=== PATIENT | male | born 1990 | race Caucasian/White ===

== ENCOUNTER 2020-02-18 15:00 | Emergency (ER) | payer MEDICAID ==
[~2020-02-18] VITALS: Ht 175.3 cm; Wt 78.1 kg
[~2020-02-18 15:00] MED LIST: LIDOcaine 1% W/epiNEPHrine 1:200,000 10ml vial ONE
[2020-02-18 15:02] VITALS: BP 111/77
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
[2020-02-18] MEDS ORDERED: BACDS PO (15:45)
[2020-02-18] MEDS ORDERED: CEPH250T PO (15:45)
--- NOTE | 2020-02-18 16:02 | NUR ---
dressed wound to rt forearm with guaze and coban, pt katie well, also cleaned and redressed abrasion to left ankle, gave pt large bandaids
== END 2020-02-18 16:11 | disposition home or self-care (01) ==
LOC: ER 15:00
DX: L02.511 Cutaneous abscess of right hand (principal); M25.421 Effusion, right elbow; Z79.2 Long term (current) use of antibiotics
CPT/HCPCS: 10060; 99284

== ENCOUNTER 2020-03-17 10:42 | Emergency (ER) | payer MEDICAID ==
[~2020-03-17] VITALS: Ht 175.3 cm; Wt 77.0 kg
[2020-03-17] MEDS ORDERED: normal saline 1000ML IV soln IVB ONE (10:55)
[2020-03-17] MEDS ORDERED: ondansetron/PF 4mg/2ml inj IV ONE (10:55)
[2020-03-17] MEDS ORDERED: iohexol 300mg/ml 100ml inj. ONE (11:01)
[2020-03-17] MEDS: morphine 4 MG/ML inj SYRINge IV PRN ×2 (11:37→13:51)
--- NOTE | 2020-03-17 11:42 | NUR ---
PT TO MRI
[2020-03-17] MEDS ORDERED: morphine 4 MG/ML inj SYRINge IV ONE ×2 (11:50→13:55)
[2020-03-17] MEDS ORDERED: ketorolac trometh. 30mg/ml inj. IV ONE (11:50)
[2020-03-17] MEDS ORDERED: LORazepam 2 mg/ml vial IV ONE (11:50)
[2020-03-17 11:51] LABS: BASOPHILS % (AUTO) 0.3 % (0-1); EOSINOPHILS # (AUTO) 0.1 X10'3 (0-0.9); HEMATOCRIT 40.7 % (42.0-52.0); HEMOGLOBIN 13.5 g/dl (14.0-17.9); LYMPHOCYTES # (AUTO) 1.2 X10'3 (1.1-4.8); LYMPHOCYTES % (AUTO) 14.3 % (21-51); MEAN CORPUSCULAR HEMOGLOBIN 28.9 PG (27.0-31.0); MEAN CORPUSCULAR HGB CONC 33.1 g/dL (33.0-36.5); MEAN CORPUSCULAR VOLUME 87.2 FL (78-98); MEAN PLATELET VOLUME 9.1 FL (7.4-10.4); MONOCYTES # (AUTO) 0.6 X10'3 (0-0.9); MONOCYTES % (AUTO) 6.9 % (2-12); NEUTROPHILS # (AUTO) 6.6 X10'3 (1.8-7.7); NEUTROPHILS % (AUTO) 77.5 % (42-75); PLATELET COUNT 198 X10'3 (140-440); RED BLOOD COUNT 4.66 X10'6 (4.70-6.10); RED CELL DISTRIBUTION WIDTH 15.6 % (11.5-14.5); WHITE BLOOD COUNT 8.5 X10'3 (4.5-11.0)
[2020-03-17 12:07] LABS: ALANINE AMINOTRANSFERASE 31 U/L (12-78); ALBUMIN 4.1 G/DL (3.4-5.0); ALBUMIN/GLOBULIN RATIO 1.4 (1.1-1.5); ALKALINE PHOSPHATASE 67 IU/L (46-116); ANION GAP 3 (8-16); ASPARTATE AMINO TRANSFERASE 44 U/L (10-37); BILIRUBIN,TOTAL 0.5 MG/DL (0.1-1.0); BLOOD UREA NITROGEN 15 MG/DL (7-18); BUN/CREATININE RATIO 17.4 (5.4-32.0); CALCIUM 8.2 MG/DL (8.5-10.1); CHLORIDE 102 MMOL/L (99-107); CREATININE 0.86 MG/DL (0.60-1.10); GLUCOSE 94 MG/DL (70-104); POTASSIUM 3.7 MMOL/L (3.5-5.1); SODIUM 138 MMOL/L (135-145); TOTAL CARBON DIOXIDE 32.8 MMOL/L (24-32); eGFR > 90 ML/MIN
[2020-03-17 12:09] LABS: ETHANOL < 0.010 GM/DL (0.0-0.010); TROPONIN I < 0.04 NG/ML (0.0-0.05)
--- NOTE | 2020-03-17 12:22 | NUR ---
PT BACK FROM MRI, PT PLACED ON ER MONITORS.
[2020-03-17 12:49] LABS: CLARITY,URINE CLEAR (Clear); COLOR,URINE YELLOW (Yellow); GLUCOSE, URINE NEGATIVE (Neg); KETONES,URINE TRACE mg/dl (Neg); LEUKOCYTE ESTERASE ,URINE NEGATIVE (Neg); NITRITES, URINE NEGATIVE (Neg); OCCULT BLOOD,URINE NEGATIVE (Neg); PH,URINE 6.5 (4.8-8.0); PROTEIN,URINE NEGATIVE (Neg); UROBILINOGEN,URINE 0.2 E.U/dL (0.2-1.0)
[2020-03-17 12:58] LABS: UA COLLECTION TYPE URINAL
[2020-03-17 13:01] LABS: URINE AMPHETAMINE SCREEN NEGATIVE (Neg); URINE BARBITUATE SCREEN NEGATIVE (Neg); URINE BENZODIAZEPINES SCREEN NEGATIVE (Neg); URINE CANNABINOID SCREEN POSITIVE (Neg); URINE COCAINE SCREEN NEGATIVE (Neg); URINE METHADONE SCREEN NEGATIVE (Neg); URINE OPIATE SCREEN POSITIVE (Neg); URINE PHENCYCLIDINE SCREEN NEGATIVE (Neg)
[2020-03-17 14:16] VITALS: BP 102/58
== END 2020-03-17 14:50 | disposition short-term general hospital (02) ==
LOC: ER 10:43
DX: S20.229A Contusion of unspecified back wall of thorax, initial encounter (principal); S40.812A Abrasion of left upper arm, initial encounter; S80.212A Abrasion, left knee, initial encounter; S80.211A Abrasion, right knee, initial encounter; S60.512A Abrasion of left hand, initial encounter; S60.511A Abrasion of right hand, initial encounter; M51.27 Other intervertebral disc displacement, lumbosacral region; R33.9 Retention of urine, unspecified; V09.9XXA Pedestrian injured in unspecified transport accident, initial encounter; Y93.51 Activity, roller skating (inline) and skateboarding; Y92.89 Other specified places as the place of occurrence of the external cause; Y99.8 Other external cause status
CPT/HCPCS: 36415; 51702; 71045; 71260; 72131; 72148; 74177; 80053; 80305; 80320; 81003; 82948; 84484; 85025; 85610; 86885; 86900; 86901; 96361; 96374; 96375; 96376; 99291; J1885; J2060; J2270; J2405; J7030; Q9967